=== PATIENT | female | born 1975 | race Caucasian/White ===

== ENCOUNTER 2022-04-07 10:13 | Day surgery (SDC) | payer OTHER ==
[2022-04-07] MEDS ORDERED: Depo-Medrol 40 MG/ML IM ONE (10:14)
[2022-04-07] MEDS ORDERED: Marcaine Mpf 0.5% Vial 30 Ml IJ ONE (10:14)
[2022-04-07] MEDS ORDERED: DIPRIVAN 200 MG/20 ML IV ONE (12:37)
[2022-04-07] MEDS ORDERED: Lactated Ringers 1,000 ML IV ONE (14:22)
--- NOTE | 2022-04-07 14:38 | XRAY ---
Indication: Right shoulder and subacromial bursa injection. Intraoperative fluoroscopy provided for 17 seconds. 2 digital spot image submitted for interpretation demonstrates needle tip projecting over the right glenohumeral joint superiorly. Second needle tip subacromial. Small amount of contrast injected for both needle tip placement. Correlate with intraoperative findings/report.
--- NOTE | 2022-04-07 15:12 | XRAY ---
17 seconds fluoroscopy time in surgery for injections of the intra-articular joint space and sub acromial bursa of the right shoulder
== END 2022-04-07 13:02 | disposition home or self-care (01) ==
LOC: SDC-PAIN 10:13
PROVIDERS: ATTEND Psychiatry & Neurology Pain Medicine
DX: M19.011 Primary osteoarthritis, right shoulder (principal); M75.51 Bursitis of right shoulder; Z79.899 Other long term (current) drug therapy
CPT/HCPCS: 20610; 73030; 77002; 81025; J1030; J2704; Q9966

== ENCOUNTER 2022-04-12 05:47 | Day surgery (SDC) | payer OTHER ==
[2022-04-12] MEDS ORDERED: Lactated Ringers 1,000 ML IV SCH (06:30)
[2022-04-12] MEDS ORDERED: Xylocaine-Mpf 2% 5 Ml Vial ONE (07:19)
[2022-04-12] MEDS ORDERED: SUBLIMAZE 100 MCG/2 ML ONE (07:19)
[2022-04-12] MEDS ORDERED: Versed 2 MG/2 ML Injection ONE (07:19)
[2022-04-12] MEDS ORDERED: DIPRIVAN 200 MG/20 ML IV ONE ×2 (07:19→08:22)
[2022-04-12] MEDS ORDERED: Ketamine HCl 50 MG/ML ONE (07:22)
[2022-04-12] MEDS ORDERED: XYLOCAINE 1% HCL 20 ML MDV ONE (08:07)
[2022-04-12] MEDS ORDERED: KEFZOL 1 GM ONE (08:16)
[2022-04-12] MEDS ORDERED: Triple Antibiotic Ointment ONE (08:30)
[2022-04-12] MEDS ORDERED: TORAdol 30 mg Injection ONE (08:50)
[2022-04-12 09:30] VITALS: PULSE 49
[2022-04-12 09:37] VITALS: BP 169/92; O2SAT 97
--- NOTE | 2022-04-13 09:49 | OP ---
SURGERY DATE: 04/12/2022 SURGERY TIME: 802 PREOPERATIVE DIAGNOSIS: 1. SCALP CYST X 2. POSTOPERATIVE DIAGNOSIS: 1. SCALP CYST X 2. PROCEDURE: 1. Excision scalp cyst X 2, 1 cm X 1 cm and 0.5 cm X 0.6 cm. SURGEON: Dr. Junie Johnston. ANESTHESIA: MAC. ESTIMATED BLOOD LOSS: Minimal. SPECIMENS: 1. Scalp cyst X 2. COMPLICATIONS: None. PROCEDURE DETAILS: This is a 46 y/o female who presents with 2 scalp cysts which she would like excised. Risks, benefits, and alternatives discussed with the patient. She understands and agrees to proceed. Her H&P and consent were reviewed on the day of the procedure. The hair has already been clipped at both sites. The sites were verified personally with the patient preoperatively and circled with surgical nair placed. She was then brought back to the operative suite, anesthesia induced, prepped and draped in the usual sterile fashion, complete time-out performed. Incision made directly over each cyst. The cyst was then dissected out with a hemostat and then a Bovie cautery. Cysts were sent to pathology. They were both removed completely. Entire sac was removed with the cysts. We then irrigated, ensured hemostasis, and closed with 3-0 Prolene suture and a sterile Bacitracin. Everything was hemostatic and looked good. The patient will be following up with me as an outpatient. All instructions have been written for her and discussed with her nurses. No family present at this time, so instructions given to the nurses for patient when she awakes.
== END 2022-04-12 09:42 | disposition home or self-care (01) ==
LOC: SDC 05:47
PROVIDERS: ATTEND Surgery
DX: L72.11 Pilar cyst (principal)
CPT/HCPCS: J0690; J1885; J2250; J2704; J3010; A9270-GY

== ENCOUNTER 2022-10-11 10:06 | Day surgery (SDC) | payer OTHER ==
[2022-10-11] MEDS ORDERED: CLINDAMYCIN-D5W 900 MG/50 ML*** 900 MG/50 ML BAG IV ONE (10:07)
[2022-10-11] MEDS ORDERED: Lactated Ringers 1,000 ML IV ONE (10:29)
[2022-10-11 10:43] VITALS: BP 149/92; PULSE 54; O2SAT 94
[2022-10-11 10:50] LABS: HCG URINE TEST NEGATIVE (NEGATIVE)
[2022-10-11] MEDS ORDERED: Lactated Ringers 1,000 ML IV SCH (11:00)
[2022-10-11] MEDS ORDERED: DIPRIVAN 200 MG/20 ML IV ONE ×2 (12:14)
[2022-10-11] MEDS ORDERED: Zofran 4 MG/2 ML VIAL ONE (12:14)
[2022-10-11] MEDS ORDERED: Xylocaine-Mpf 2% 5 Ml Vial ONE (12:14)
[2022-10-11] MEDS ORDERED: Quelicin Fliptop 200 MG/10 ML ONE (12:14)
[2022-10-11] MEDS ORDERED: Decadron 4 MG INJ ONE (12:14)
[2022-10-11] MEDS ORDERED: Versed 2 MG/2 ML Injection ONE (12:16)
[2022-10-11] MEDS ORDERED: SUBLIMAZE 100 MCG/2 ML ONE (12:17)
[2022-10-11] MEDS ORDERED: Sensorcaine 0.25% 10 ML ONE (12:33)
[2022-10-11] MEDS ORDERED: ATROPINE SULFATE 1MG ONE (12:36)
[2022-10-11] MEDS ORDERED: Zemuron 100 MG/10 ML ONE (12:38)
[2022-10-11] MEDS ORDERED: BRIDION 200MG/2ML IV ONE (12:53)
[2022-10-11 13:25] LABS: Hemoglobin 11.9 g/dL (12.0-16.0); Mean Cell Volume 90.7 fL (78-100); Mean Corpuscular Hemoglobin 28.4 pg (26-32); Mean Corpuscular Hgb Concent. 31.3 g/dL (32-36); Mean Platelet Volume 9.8 fL (7.5-11.0); Platelet Count 268 x10^3/uL (150-450); Red Blood Count 4.19 x10^6/uL (4.1-5.4); Red Cell Distribution Width 14.6 % (11.5-14.0); White Blood Count 7.7 x10^3/uL (4.0-10.5)
[2022-10-11 13:50] LABS: ALBUMIN 3.6 g/dL (3.5-5.0); ALKALINE PHOSPHATASE 94 U/L (38-126); ANION GAP 11.1 MEQ/L (5-15); BLOOD UREA NITROGEN 8 mg/dL (7-17); CHLORIDE 108 mmol/L (98-107); Calcium 8.4 mg/dL (8.4-10.2); Carbon Dioxide 26 mmol/L (22-30); Creatinine 1 0.76 mg/dL (0.52-1.04); EST GLOMERULAR FILTRATION RATE > 60.0 ML/MIN; Glucose 104 mg/dL (74-106); MAGNESIUM 1.8 mg/dL (1.6-2.3); Potassium 3.9 mmol/L (3.5-5.1); SGOT/AST 23 U/L (14-36); SGPT/ALT 19 U/L (0-35); SODIUM 142 mmol/L (137-145); TROPONIN < 0.012 ng/mL (0.000-0.034); Total Protein 6.5 g/dL (6.3-8.2)
== END 2022-10-11 14:56 | disposition short-term general hospital (02) ==
LOC: SDC 10:06
PROVIDERS: ATTEND Surgery
DX: Z53.8 Procedure and treatment not carried out for other reasons (principal); I10 Essential (primary) hypertension
CPT/HCPCS: 36415; 80053; 81025; 83735; 84484; 85027; 93005; J0330; J0461; J1100; J2250; J2405; J2704; J3010

== ENCOUNTER 2023-01-05 08:40 | Day surgery (SDC) | payer OTHER ==
[2023-01-05] MEDS ORDERED: Depo-Medrol 40 MG/ML IM ONE (08:41)
[2023-01-05] MEDS ORDERED: Sodium Chloride 0.9(Preservative Free) 10 ML IJ ONE (08:41)
[2023-01-05 08:58] LABS: HCG URINE TEST NEGATIVE (NEGATIVE)
[2023-01-05] MEDS ORDERED: DIPRIVAN 200 MG/20 ML IV ONE (10:01)
[2023-01-05] MEDS ORDERED: Xylocaine-Mpf 2% 5 Ml Vial ONE (10:03)
[2023-01-05] MEDS ORDERED: Lactated Ringers 1,000 ML IV ONE (11:12)
--- NOTE | 2023-01-05 11:50 | XRAY ---
Indication: Right L4-S1 transforaminal SHARIF. Intraoperative fluoroscopy provided for 31 seconds. 4 digital spot image submitted for interpretation demonstrates posterior needle tips project over the expected right L4 and L5 nerve roots. Small amount of contrast injected for needle tip placement. Correlate with intraoperative findings/report.
--- NOTE | 2023-01-05 13:03 | XRAY ---
31 seconds of fluoroscopy was used in surgery for a right L4-S1 transforaminal SHARIF.
== END 2023-01-05 10:30 | disposition home or self-care (01) ==
LOC: SDC-PAIN 08:40
PROVIDERS: ATTEND Psychiatry & Neurology Pain Medicine
DX: M54.16 Radiculopathy, lumbar region (principal); Z79.899 Other long term (current) drug therapy
CPT/HCPCS: 64483; 64484; 72100; 77003; 81025; J1030; J2704; Q9966

== ENCOUNTER 2023-02-09 14:07 | Day surgery (SDC) | payer OTHER ==
[2023-02-09] MEDS ORDERED: Depo-Medrol 40 MG/ML IM ONE (14:08)
[2023-02-09] MEDS ORDERED: BUPIVACAINE 0.5% VIAL IJ ONE (14:08)
[2023-02-09 14:18] LABS: HCG URINE TEST NEGATIVE (NEGATIVE)
[2023-02-09] MEDS ORDERED: DIPRIVAN 200 MG/20 ML IV ONE ×2 (16:17→16:27)
[2023-02-09] MEDS ORDERED: Xylocaine-Mpf 2% 5 Ml Vial ONE (16:20)
[2023-02-09] MEDS ORDERED: Lactated Ringers 1,000 ML IV ONE ×2 (16:50→17:20)
--- NOTE | 2023-02-09 16:59 | XRAY ---
Indication: Right shoulder and subacromial bursa injection. Intraoperative fluoroscopy provided for 21 seconds. 2 digital spot image submitted for interpretation demonstrates needle tip projecting over the right glenohumeral joint superiorly. Second needle tip subacromial. Small amount of contrast injected for both needle tip placement. Correlate with intraoperative findings/report.
--- NOTE | 2023-02-09 16:59 | XRAY ---
21 seconds of fluoroscopy was used in surgery for a right shoulder intra-articular and subacromial bursa injections.
== END 2023-02-09 16:47 | disposition home or self-care (01) ==
LOC: SDC-PAIN 14:07
PROVIDERS: ATTEND Psychiatry & Neurology Pain Medicine
DX: M19.011 Primary osteoarthritis, right shoulder (principal); M75.51 Bursitis of right shoulder; Z79.899 Other long term (current) drug therapy
CPT/HCPCS: 20610; 73030; 77002; 81025; J1030; J2704; Q9966

== ENCOUNTER 2023-07-27 14:32 | Day surgery (SDC) | payer OTHER ==
[2023-07-27] MEDS ORDERED: BUPIVACAINE 0.5% VIAL IJ ONE (14:33)
[2023-07-27] MEDS ORDERED: Depo-Medrol 40 MG/ML IM ONE (14:33)
[2023-07-27 16:13] LABS: HCG URINE TEST NEGATIVE (NEGATIVE)
[2023-07-27] MEDS ORDERED: DIPRIVAN 200 MG/20 ML IV ONE (17:46)
[2023-07-27] MEDS ORDERED: Lactated Ringers 1,000 ML IV ONE (18:06)
--- NOTE | 2023-07-27 20:24 | XRAY ---
Indication: Right shoulder and subacromial bursa injection Intraoperative fluoroscopy provided for 20 seconds. 2 digital spot image submitted for interpretation demonstrates needle tip projecting over right glenohumeral joint superiorly. Second needle tip subacromial. Small amount of contrast injected for both needle tip placement. Correlate with intraoperative findings/report.
--- NOTE | 2023-07-28 09:37 | XRAY ---
20 seconds of fluoroscopy was used in surgery for a right intra-articular shoulder and subacromial bursa injection.
== END 2023-07-27 18:20 | disposition home or self-care (01) ==
LOC: SDC-PAIN 14:32
PROVIDERS: ATTEND Psychiatry & Neurology Pain Medicine
DX: M19.011 Primary osteoarthritis, right shoulder (principal); M75.51 Bursitis of right shoulder
CPT/HCPCS: 20610; 73030; 77002; 81025; J1030; J2704; Q9966

== ENCOUNTER 2023-11-02 12:08 | Day surgery (SDC) | payer OTHER ==
[2023-11-02] MEDS ORDERED: XYLOCAINE-MPF 1% 5ML SDV IJ ONE (12:09)
[2023-11-02] MEDS ORDERED: Decadron 4 MG INJ IV ONE (12:09)
[2023-11-02] MEDS ORDERED: Sodium Chloride 0.9(Preservative Free) 10 ML IJ ONE (12:09)
[2023-11-02 12:39] LABS: HCG URINE TEST NEGATIVE (NEGATIVE)
[2023-11-02] MEDS ORDERED: DIPRIVAN 200 MG/20 ML IV ONE (13:45)
[2023-11-02] MEDS ORDERED: Lactated Ringers 1,000 ML IV ONE (14:06)
--- NOTE | 2023-11-02 14:55 | XRAY ---
Indication: Left L4-S1 transforaminal SHARIF. Intraoperative fluoroscopy was provided for 34 seconds. 5 digital spot image submitted for interpretation demonstrates posterior needle tips projecting over expected left L4 and L5 nerve roots. Small amount of contrast injected for needle tip placement. Correlate with intraoperative findings/report.
--- NOTE | 2023-11-02 14:55 | XRAY ---
Indication: Left piriformis injection. Intraoperative fluoroscopy was provided for 11 seconds. Single digital spot image submitted for interpretation demonstrates posterior needle tip projecting over left piriformis. Small amount of contrast injected for needle tip placement. Correlate with intraoperative findings/report.
--- NOTE | 2023-11-03 14:46 | XRAY ---
11 seconds of fluoroscopy was used in surgery for a left piriformis injection.
--- NOTE | 2023-11-03 14:46 | XRAY ---
34 seconds of fluoroscopy was used in surgery for a left L4-S1 transforaminal SHARIF.
== END 2023-11-02 14:17 | disposition home or self-care (01) ==
LOC: SDC-PAIN 12:08
PROVIDERS: ATTEND Psychiatry & Neurology Pain Medicine
DX: M54.16 Radiculopathy, lumbar region (principal); M79.18 Myalgia, other site
CPT/HCPCS: 20552; 64483; 64484; 72100; 72170; 77002; 77003; 81025; J1100; J2704; Q9966

== ENCOUNTER 2023-12-07 13:14 | Day surgery (SDC) | payer OTHER ==
[2023-12-07] MEDS ORDERED: Decadron 4 MG INJ IV ONE (13:15)
[2023-12-07] MEDS ORDERED: Sodium Chloride 0.9(Preservative Free) 10 ML IJ ONE (13:15)
[2023-12-07 14:17] LABS: HCG URINE TEST NEGATIVE (NEGATIVE)
[2023-12-07] MEDS ORDERED: DIPRIVAN 200 MG/20 ML IV ONE (15:27)
[2023-12-07] MEDS ORDERED: Lactated Ringers 1,000 ML IV ONE (15:33)
--- NOTE | 2023-12-07 16:02 | XRAY ---
Indication: Right L3-L5 transforaminal SHARIF. Intraoperative fluoroscopy provided for 27 seconds. 5 digital spot images submitted for interpretation demonstrates posterior needle tips projecting over the expected right L3 and L4 nerve roots. Small amount of contrast injected for needle tip placement. Correlate with intraoperative findings/report.
--- NOTE | 2023-12-08 07:18 | XRAY ---
27 seconds of fluoroscopy used in surgery for a right L3-L5 transforaminal SHARIF.
== END 2023-12-07 15:56 | disposition home or self-care (01) ==
LOC: SDC-PAIN 13:14
PROVIDERS: ATTEND Psychiatry & Neurology Pain Medicine
DX: M54.16 Radiculopathy, lumbar region (principal)
CPT/HCPCS: 64483; 64484; 72100; 77003; 81025; J1100; J2704; Q9966

== ENCOUNTER 2024-02-29 13:33 | Day surgery (SDC) | payer OTHER ==
[2024-02-29] MEDS ORDERED: Depo-Medrol 40 MG/ML IM ONE (13:34)
[2024-02-29] MEDS ORDERED: BUPIVACAINE 0.5% VIAL IJ ONE (13:34)
[2024-02-29 13:43] LABS: HCG URINE TEST NEGATIVE (NEGATIVE)
[2024-02-29] MEDS ORDERED: Lactated Ringers 1,000 ML IV ONE (15:03)
[2024-02-29] MEDS ORDERED: DIPRIVAN 200 MG/20 ML IV ONE (15:38)
--- NOTE | 2024-02-29 17:14 | XRAY ---
Indication: Left knee injection. Intraoperative fluoroscopy provided for 6 seconds. Single digital spot image submitted for interpretation demonstrates needle tip projecting over left femur intercondylar notch. Small amount of contrast injected for needle tip placement. Correlate with intraoperative findings/report.
--- NOTE | 2024-02-29 17:14 | XRAY ---
6 seconds of fluoroscopy was used in surgery for a left knee intra-articular injection.
== END 2024-02-29 16:06 | disposition home or self-care (01) ==
LOC: SDC-PAIN 13:33
PROVIDERS: ATTEND Psychiatry & Neurology Pain Medicine
DX: M17.12 Unilateral primary osteoarthritis, left knee (principal); M70.52 Other bursitis of knee, left knee
CPT/HCPCS: 20610; 73560; 77002; 81025; J2704; Q9966

== ENCOUNTER 2024-09-05 14:03 | Day surgery (SDC) | payer OTHER ==
[2024-09-05] MEDS ORDERED: LIDOCAINE HCL 1% AMPUL 5 ML IJ ONE (14:04)
[2024-09-05] MEDS ORDERED: Depo-Medrol 40 MG/ML IM ONE (14:04)
[2024-09-05] MEDS ORDERED: BUPIVACAINE 0.5% VIAL IJ ONE (14:04)
[2024-09-05 14:13] LABS: HCG URINE TEST NEGATIVE (NEGATIVE)
[2024-09-05] MEDS ORDERED: Versed 2 MG/2 ML Injection ONE (16:26)
--- NOTE | 2024-09-05 19:09 | XRAY ---
Indication: Right shoulder and subacromial bursa injection. Intraoperative fluoroscopy provided for 31 seconds. 2 digital spot image submitted for interpretation demonstrates needle tip projecting over right glenohumeral joint superiorly. Second needle tip subacromial. Small amount of contrast injected for needle tip placement. Correlate with intraoperative findings/report.
--- NOTE | 2024-09-06 09:45 | XRAY ---
31 seconds of fluoroscopy was used in surgery for a right intra-articular shoulder and subacromial bursa injection.
== END 2024-09-05 17:15 | disposition home or self-care (01) ==
LOC: SDC-PAIN 14:03
PROVIDERS: ATTEND Psychiatry & Neurology Pain Medicine
DX: M19.011 Primary osteoarthritis, right shoulder (principal); M75.51 Bursitis of right shoulder
CPT/HCPCS: 20610; 73030; 77002; 81025; J2250; Q9966

== ENCOUNTER 2024-10-24 11:17 | Day surgery (SDC) | payer OTHER ==
[2024-10-24] MEDS ORDERED: dexAMETHasone sodium phosphate IJ ONE (11:18)
[2024-10-24] MEDS ORDERED: Sodium Chloride 0.9(Preservative Free) 10 ML IJ ONE (11:18)
[2024-10-24 11:56] LABS: HCG URINE TEST NEGATIVE (NEGATIVE)
[2024-10-24] MEDS ORDERED: propofoL IV ONE (13:36)
[2024-10-24] MEDS ORDERED: Xylocaine-Mpf 2% 5 Ml Vial ONE (13:38)
[2024-10-24] MEDS ORDERED: MORPHINE SULFATE 2 MG INJ ONE (13:56)
--- NOTE | 2024-10-24 14:51 | XRAY ---
Indication: Right L4-S1 transforaminal SHARIF. Intraoperative fluoroscopy provided for 27 seconds. 3 digital spot images submitted for interpretation demonstrates posterior needle tips projecting over expected right L4 and L5 nerve roots. Small amount of contrast injected for needle tip placement. Correlate with intraoperative findings/report.
--- NOTE | 2024-10-24 14:55 | XRAY ---
27 seconds of fluoroscopy was used in surgery for a right L4-S1 transforaminal SHARIF.
[2024-10-24] MEDS ORDERED: Lactated Ringers 1,000 ML IV ONE (16:11)
== END 2024-10-24 14:25 | disposition home or self-care (01) ==
LOC: SDC-PAIN 11:17
PROVIDERS: ATTEND Psychiatry & Neurology Pain Medicine
DX: M54.16 Radiculopathy, lumbar region (principal)
CPT/HCPCS: 64483; 64484; 72100; 81025; J1100; J2270; J2704; Q9966